=== PATIENT | male | born 1955 | race Caucasian/White ===

== ENCOUNTER 2022-01-20 15:21 | Emergency (ER) | payer MEDICARE, BC ==
[~2022-01-20] VITALS: Ht 177.8 cm; Wt 72.1 kg
--- NOTE | 2022-01-20 15:45 | NUR ---
BIBS C/O NAUSEA/ VOMITTING X 4 DAYS W BLOOD TINGE VOMIT. AMBULATORY, PLACED ON BED, IN PAIN 10/06 PS
--- NOTE | 2022-01-20 16:17 | NUR ---
AT BEDSIDE FOR EVAL.
[2022-01-20] MEDS ORDERED: KETOROLAC TROMETHAMINE 15 MG/ML VIAL ONE (16:27)
[2022-01-20] MEDS ORDERED: ONDANSETRON HCL/PF 4 MG/2 ML VIAL ONE (16:27)
[2022-01-20] MEDS ORDERED: FAMOTIDINE/PF INJ 20 MG/2 ML VIAL IV ONE ×2 (16:27→16:30)
[2022-01-20] MEDS ORDERED: KETOROLAC TROMETHAMINE INJ 30 MG/ML VIAL IV ONE (16:30)
[2022-01-20] MEDS ORDERED: ONDANSETRON HCL/PF 4 MG/2 ML VIAL IV ONE (16:30)
[2022-01-20] MEDS ORDERED: IV NS 0.9% 1,000 ML IV ONE (16:30)
--- NOTE | 2022-01-20 16:35 | NUR ---
BLOOD DRAWN AND SENT TO LAB
[2022-01-20 16:43] LABS: BASOPHILS % (AUTO) 0.2 % (0.0-2.0); HEMATOCRIT 48 % (39-51); HEMOGLOBIN 16.8 g/dL (13.5-17.5); LYMPHOCYTES # (AUTO) 0.8 K/uL (0.8-4.8); LYMPHOCYTES % (AUTO) 15.4 % (20.0-44.0); MEAN CORPUSCULAR HGB CONC 35 g/dl (31.0-36.0); MEAN CORPUSCULAR VOLUME 89 fL (80-96); MONOCYTES # (AUTO) 0.9 K/uL (0.1-1.30); MONOCYTES % (AUTO) 17.2 % (2.0-12.0); NEUTROPHILS # (AUTO) 3.5 K/uL (1.8-8.9); NEUTROPHILS % (AUTO) 66.2 % (43.0-81.0); PLATELET COUNT (AUTO) 179 K/uL (150-450); RED BLOOD CELL COUNT(AUTO) 5.44 MIL/uL (4.5-6.0); WHITE BLOOD COUNT (AUTO) 5.3 K/uL (4.3-11.0)
[2022-01-20 17:13] LABS: ALBUMIN 3.8 g/dL (3.4-5.0); CALCIUM, SERUM 9.1 mg/dL (8.5-10.1); POTASSIUM 3.6 mmol/L (3.5-5.1); TOTAL PROTEIN, SERUM 7.6 g/dL (6.4-8.2)
[2022-01-20] MEDS ORDERED: DICY10CA13 PO (18:05)
[2022-01-20] MEDS ORDERED: ONDA4TAB5 PO (18:05)
[2022-01-20] MEDS ORDERED: FAMO20TA8 PO (18:05)
--- NOTE | 2022-01-20 18:21 | NUR ---
IV removed. Catheter intact and site benign. Pressure and 4x4 applied to site. No bleeding noted.Patient discharged to home in stable condition. Written and verbal after care instructions given. Patient verbalizes understanding of instruction.
[2022-01-20 18:48] VITALS: BP 125/81
== END 2022-01-20 18:21 | disposition home or self-care (01) ==
LOC: ER 15:25
DX: K52.9 Noninfective gastroenteritis and colitis, unspecified (principal); R10.31 Right lower quadrant pain; R10.32 Left lower quadrant pain; Z79.899 Other long term (current) drug therapy
CPT/HCPCS: 99284; 96374; 96375; 96361; 85025; 83690; 36415; 80053; J3490; J2405; J7030; J1885